=== PATIENT | male | born 1955 | race Caucasian/White ===

== ENCOUNTER 2017-06-07 18:46 | Emergency (ER) | payer MEDICARE, MEDICAID ==
[~2017-06-07] VITALS: Ht 182.9 cm; Wt 105.3 kg
[~2017-06-07 18:46] MED LIST: ATOR20TA PO; CEPH500C5 PO; CYCL-1 PO; FURO-150 PO; GUAI600T45 PO; LEVO125T8 PO
[2017-06-07 19:49] LABS: BASOPHILS # (AUTO) 0.2 X10'3 (0-0.2); BASOPHILS % (AUTO) 1.7 % (0-1); EOSINOPHILS # (AUTO) 0.6 X10'3 (0-0.9); EOSINOPHILS % (AUTO) 6.4 % (0-6); HEMATOCRIT 41.3 % (42.0-52.0); HEMOGLOBIN 14.2 g/dl (14.0-17.9); LYMPHOCYTES # (AUTO) 2.1 X10'3 (1.1-4.8); LYMPHOCYTES % (AUTO) 22.4 % (21-51); MEAN CORPUSCULAR HEMOGLOBIN 30.6 PG (27.0-31.0); MEAN CORPUSCULAR HGB CONC 34.4 % (33.0-36.5); MEAN CORPUSCULAR VOLUME 89.1 FL (78-98); MEAN PLATELET VOLUME 6.5 FL (7.4-10.4); MONOCYTES # (AUTO) 0.5 X10'3 (0-0.9); MONOCYTES % (AUTO) 5.8 % (2-12); NEUTROPHILS # (AUTO) 5.9 X10'3 (1.8-7.7); NEUTROPHILS % (AUTO) 63.7 % (42-75); PLATELET COUNT 313 X10'3 (140-440); RED BLOOD COUNT 4.64 X10'6 (4.70-6.10); RED CELL DISTRIBUTION WIDTH 14.8 % (11.5-14.5); WHITE BLOOD COUNT 9.2 X10'3 (4.5-11.0)
[2017-06-07 19:58] LABS: CLARITY,URINE CLEAR (Clear); COLOR,URINE YELLOW (Yellow); GLUCOSE, URINE NEGATIVE (Neg); KETONES,URINE NEGATIVE (Neg); LEUKOCYTE ESTERASE ,URINE NEGATIVE (Neg); NITRITES, URINE NEGATIVE (Neg); OCCULT BLOOD,URINE NEGATIVE (Neg); PROTEIN,URINE NEGATIVE (Neg); UROBILINOGEN,URINE 0.2 E.U/dL (0.2-1.0)
[2017-06-07 20:00] LABS: UA COLLECTION TYPE CLN CATCH MIDSTREAM
[2017-06-07 20:02] LABS: ALANINE AMINOTRANSFERASE 30 U/L (12-78); ALBUMIN 3.5 G/DL (3.4-5.0); ALBUMIN/GLOBULIN RATIO 0.9 (1.1-1.5); ALKALINE PHOSPHATASE 108 IU/L (46-116); ANION GAP 11 (8-16); ASPARTATE AMINO TRANSFERASE 28 U/L (10-37); BILIRUBIN,TOTAL 0.2 MG/DL (0.1-1.0); BLOOD UREA NITROGEN 13 MG/DL (7-18); BUN/CREATININE RATIO 11.8 (5.4-32.0); CALCIUM 8.8 MG/DL (8.5-10.1); CHLORIDE 105 MMOL/L (99-107); GLUCOSE 95 MG/DL (70-104); POTASSIUM 3.8 MMOL/L (3.5-5.1); SODIUM 141 MMOL/L (135-145); TOTAL PROTEIN 7.5 G/DL (6.4-8.2); eGFR 68 ML/MIN
[2017-06-07] MEDS ORDERED: AZIT-63 PO (20:16)
[2017-06-07] MEDS ORDERED: ketorolac trometh inj. 60 MG/2 ML VIAL IM ONE (20:20)
[2017-06-07 20:22] VITALS: BP 128/77
== END 2017-06-07 20:25 | disposition home or self-care (01) ==
LOC: ER 18:46
DX: J06.9 Acute upper respiratory infection, unspecified (principal); T50.905A Adverse effect of unspecified drugs, medicaments and biological substances, initial encounter; J44.9 Chronic obstructive pulmonary disease, unspecified; I10 Essential (primary) hypertension; E78.00 Pure hypercholesterolemia, unspecified; F11.10 Opioid abuse, uncomplicated; F17.210 Nicotine dependence, cigarettes, uncomplicated; Z86.19 Personal history of other infectious and parasitic diseases; Y92.89 Other specified places as the place of occurrence of the external cause
CPT/HCPCS: 36415; 71045; 80053; 81003; 85025; 96372; 99285; J1885

== ENCOUNTER 2017-10-17 16:13 | Emergency (ER) | payer MEDICARE, MEDICAID ==
[~2017-10-17] VITALS: Ht 182.9 cm; Wt 100.0 kg
[2017-10-17 16:18] VITALS: BP 134/79
[2017-10-17] MEDS ORDERED: BUPIVAcaine/PF 2.5 mg/ml (0.25%) 30ml vial IJ ONE ×2 (16:50→16:55)
[2017-10-17] MEDS ORDERED: HYDROcodone/acetaminophen 10/325mg tab PO ONE (16:55)
[2017-10-17] MEDS ORDERED: bupivacaine 0.25%/epinephrine 1:200,000 inj (contains preserv. MDV) SQ ONE (17:05)
[2017-10-17] MEDS ORDERED: SULF1TAB49 PO (18:34)
[2017-10-17] MEDS ORDERED: CEPH500C5 PO (18:34)
== END 2017-10-17 18:56 | disposition home or self-care (01) ==
LOC: ER 16:13
DX: L02.416 Cutaneous abscess of left lower limb (principal); L03.116 Cellulitis of left lower limb; E78.00 Pure hypercholesterolemia, unspecified; I10 Essential (primary) hypertension; J44.9 Chronic obstructive pulmonary disease, unspecified; F11.90 Opioid use, unspecified, uncomplicated; Z86.19 Personal history of other infectious and parasitic diseases; Z79.2 Long term (current) use of antibiotics; Z79.899 Other long term (current) drug therapy
CPT/HCPCS: 10060; 99283

== ENCOUNTER 2017-10-20 11:10 | Emergency (ER) | payer MEDICARE, MEDICAID ==
[~2017-10-20] VITALS: Ht 182.9 cm; Wt 100.0 kg
[~2017-10-20 11:10] MED LIST changes: +SULF1TAB49 PO
[2017-10-20 12:39] VITALS: BP 112/79
== END 2017-10-20 12:45 | disposition home or self-care (01) ==
LOC: ER 11:10
DX: S81.802D Unspecified open wound, left lower leg, subsequent encounter (principal); E78.00 Pure hypercholesterolemia, unspecified; I10 Essential (primary) hypertension; J44.9 Chronic obstructive pulmonary disease, unspecified; F11.90 Opioid use, unspecified, uncomplicated; Z56.0 Unemployment, unspecified; Z79.2 Long term (current) use of antibiotics; Z79.899 Other long term (current) drug therapy; X58.XXXD Exposure to other specified factors, subsequent encounter
CPT/HCPCS: 99281; A6255; A6266; A6449

== ENCOUNTER 2017-12-03 10:25 | Emergency (ER) | payer MEDICARE, MEDICAID ==
[~2017-12-03] VITALS: Ht 182.9 cm; Wt 100.0 kg
[~2017-12-03 10:25] MED LIST changes: -SULF1TAB49 PO
[2017-12-03 10:38] VITALS: BP 145/92
== END 2017-12-03 11:20 | disposition home or self-care (01) ==
LOC: ER 10:25
DX: G62.9 Polyneuropathy, unspecified (principal); E78.00 Pure hypercholesterolemia, unspecified; I10 Essential (primary) hypertension; J44.9 Chronic obstructive pulmonary disease, unspecified; F15.90 Other stimulant use, unspecified, uncomplicated; F11.90 Opioid use, unspecified, uncomplicated; Z56.0 Unemployment, unspecified; Z79.899 Other long term (current) drug therapy
CPT/HCPCS: 99281

== ENCOUNTER 2018-03-28 20:07 | Emergency (ER) | payer MEDICARE, MEDICAID ==
[~2018-03-28] VITALS: Ht 182.9 cm; Wt 102.3 kg
[2018-03-28] MEDS ORDERED: normal saline 1000ml 1,000 ML IV ONE ×2 (21:10→21:20)
[2018-03-28] MEDS ORDERED: levetiracetam inj 1,000 MG in normal saline 100ml IV soln 90 ML IV ONE (21:15)
[2018-03-28] MEDS ORDERED: HYDROcodone/acetaminophen 5mg/325mg tablet PO ONE (21:20)
[2018-03-28] MEDS ORDERED: ondansetron/PF 4mg/2ml inj IV ONE (21:20)
[2018-03-28] MEDS ORDERED: levoFLOXACIN 750MG TABLET PO ONE (22:15)
[2018-03-28] MEDS ORDERED: AMOX-580 PO (22:20)
[2018-03-28] MEDS ORDERED: GABA-530 PO (22:20)
[2018-03-28] MEDS ORDERED: CLON0.2T PO (22:20)
[2018-03-28] MEDS ORDERED: AMIT75TA2 (22:20)
[2018-03-28] MEDS ORDERED: UMEC1DIS (22:20)
[2018-03-28] MEDS ORDERED: ALBU18HF2 INH (22:20)
[2018-03-28 22:32] LABS: BASOPHILS % (AUTO) 0.4 % (0-1); EOSINOPHILS # (AUTO) 0.7 X10'3 (0-0.9); EOSINOPHILS % (AUTO) 8.3 % (0-6); HEMATOCRIT 41.9 % (42.0-52.0); HEMOGLOBIN 14.1 g/dl (14.0-17.9); LYMPHOCYTES # (AUTO) 1.7 X10'3 (1.1-4.8); LYMPHOCYTES % (AUTO) 18.7 % (21-51); MEAN CORPUSCULAR HEMOGLOBIN 30.7 PG (27.0-31.0); MEAN CORPUSCULAR HGB CONC 33.7 % (33.0-36.5); MEAN CORPUSCULAR VOLUME 91.1 FL (78-98); MEAN PLATELET VOLUME 7.2 FL (7.4-10.4); MONOCYTES # (AUTO) 0.7 X10'3 (0-0.9); NEUTROPHILS # (AUTO) 5.7 X10'3 (1.8-7.7); NEUTROPHILS % (AUTO) 64.6 % (42-75); PLATELET COUNT 236 X10'3 (140-440); RED CELL DISTRIBUTION WIDTH 13.9 % (11.5-14.5); WHITE BLOOD COUNT 8.9 X10'3 (4.5-11.0)
[2018-03-28] MEDS ORDERED: mag hydrox/Alum hydrox/simeth 30ml oral suspension PO ONE (22:45)
[2018-03-28] MEDS ORDERED: famotidine/PF 10 mg/ml inj IV ONE (22:45)
[2018-03-28] MEDS ORDERED: pantoprazole 40 MG vial IV ONE (22:45)
[2018-03-28 22:48] LABS: ALANINE AMINOTRANSFERASE 60 U/L (12-78); ALBUMIN 3.3 G/DL (3.4-5.0); ALBUMIN/GLOBULIN RATIO 0.8 (1.1-1.5); ALKALINE PHOSPHATASE 99 IU/L (46-116); ANION GAP 9 (8-16); ASPARTATE AMINO TRANSFERASE 36 U/L (10-37); BILIRUBIN,TOTAL 0.4 MG/DL (0.1-1.0); BLOOD UREA NITROGEN 11 MG/DL (7-18); BUN/CREATININE RATIO 10.2 (5.4-32.0); CALCIUM 8.9 MG/DL (8.5-10.1); CHLORIDE 101 MMOL/L (99-107); CREATININE 1.08 MG/DL (0.60-1.10); GLUCOSE 108 MG/DL (70-104); POTASSIUM 4.1 MMOL/L (3.5-5.1); SODIUM 138 MMOL/L (135-145); TOTAL CARBON DIOXIDE 28.2 MMOL/L (24-32); TOTAL PROTEIN 7.3 G/DL (6.4-8.2); eGFR 69 ML/MIN
[2018-03-28 22:57] LABS: MAGNESIUM 2.1 MG/DL (1.5-2.4); TROPONIN I < 0.04 NG/ML (0.0-0.05)
[2018-03-28] MEDS ORDERED: methylPREDNISolone sod succ 125mg/2ml vial IV ONE (23:15)
[2018-03-28] MEDS ORDERED: ipratropium/albuterol 3ml nebule NEB ONE (23:15)
[2018-03-28] MEDS ORDERED: LEVO500T2 PO (23:37)
[2018-03-28] MEDS ORDERED: PRED20TA PO (23:37)
[2018-03-28] MEDS ORDERED: ALB0.5UD IH (23:37)
[2018-03-28] MEDS ORDERED: NEBU-208 (23:37)
[2018-03-29 00:09] LABS: CLARITY,URINE CLEAR (Clear); COLOR,URINE YELLOW (Yellow); GLUCOSE, URINE NEGATIVE (Neg); KETONES,URINE NEGATIVE (Neg); LEUKOCYTE ESTERASE ,URINE NEGATIVE (Neg); NITRITES, URINE NEGATIVE (Neg); OCCULT BLOOD,URINE NEGATIVE (Neg); PROTEIN,URINE NEGATIVE (Neg); UROBILINOGEN,URINE 0.2 E.U/dL (0.2-1.0)
[2018-03-29 00:21] LABS: UA COLLECTION TYPE CLN CATCH MIDSTREAM
[2018-03-29 00:25] VITALS: BP 134/94
== END 2018-03-29 00:27 | disposition home or self-care (01) ==
LOC: ER 20:07
DX: J44.1 Chronic obstructive pulmonary disease with (acute) exacerbation (principal); E78.00 Pure hypercholesterolemia, unspecified; I10 Essential (primary) hypertension; F15.90 Other stimulant use, unspecified, uncomplicated; F11.90 Opioid use, unspecified, uncomplicated; Z56.0 Unemployment, unspecified; Z79.899 Other long term (current) drug therapy
CPT/HCPCS: 36415; 71046; 80053; 81003; 83605; 83735; 83880; 84484; 85025; 87040; 94640; 94760; 96374; 96375; 99285; C9113; J2405; J2930; J3490; J1953; J7030

== ENCOUNTER 2019-03-27 17:02 | Emergency (ER) | payer MEDICARE, MEDICAID ==
[~2019-03-27] VITALS: Ht 182.9 cm; Wt 109.1 kg
[~2019-03-27 17:02] MED LIST changes: +ALBU18HF2 INH; +AMIT75TA2; -ATOR20TA PO; -CEPH500C5 PO; +CLON0.2T PO; -CYCL-1 PO; +FAMO40TA73 PO; -FURO-150 PO; +GABA-530 PO; -GUAI600T45 PO; +NEBU-208; +UMEC1DIS
[2019-03-27 17:05] VITALS: BP 125/75
[2019-03-27] MEDS ORDERED: ipratropium/albuterol 3ml nebule NEB ONE (18:05)
[2019-03-27] MEDS ORDERED: PRED20TA PO (18:11)
[2019-03-27] MEDS ORDERED: AZIT250T83 PO (18:11)
--- NOTE | 2019-03-27 18:24 | NUR ---
elsi, page RT [id number]
== END 2019-03-27 19:12 | disposition home or self-care (01) ==
LOC: ER 17:03
DX: F11.90 Opioid use, unspecified, uncomplicated (principal); J20.9 Acute bronchitis, unspecified; E78.00 Pure hypercholesterolemia, unspecified; I10 Essential (primary) hypertension; J44.9 Chronic obstructive pulmonary disease, unspecified; F15.90 Other stimulant use, unspecified, uncomplicated; Z56.0 Unemployment, unspecified; Z87.01 Personal history of pneumonia (recurrent); Z79.899 Other long term (current) drug therapy
CPT/HCPCS: 94640; 94760; 99283

== ENCOUNTER 2019-06-27 12:29 | Inpatient (IN) | payer MEDICARE, MEDICAID ==
[~2019-06-27] VITALS: Ht 185.4 cm; Wt 105.0 kg
--- NOTE | 2019-06-27 12:35 | NUR ---
places on bipap 02 50%
[2019-06-27] MEDS ORDERED: LORazepam 2 mg/ml vial IM ONE (12:40)
[2019-06-27] MEDS ORDERED: albuterol 2.5 MG/3 ML nebule ONE (12:42)
[2019-06-27] MEDS ORDERED: dexamethasone sod phosphate 10mg/ml inj IV STA (12:44)
--- NOTE | 2019-06-27 12:45 | NUR ---
1mg Ativan given by RAFAT Varma/order was mistakenly put in as 2mg, correct dose from verbal order given
[2019-06-27 13:00] LABS: ABG BASE EXCESS -2.8 mmol/L (-2.0-3.0); ABG HCO3 24.6 mmol/L (22.0-26.0); ABG OXYGEN SATURATION 99.1 % (95-98); ABG PCO2 (T) 52.5 mmHg (35.0-45.0); ABG PH (T) 7.288 (7.350-7.450); ABG PO2 (T) 209.4 mmHg (83-108); ALLEN'S TEST POSITIVE; FCOHb 0.6 % (0.5-1.5); FMetHb 0.2 % (0.3-1.12); FO2Hb 98.3 % (94-100); RESPIRATORY RATE 24 b/min
[2019-06-27 13:15] LABS: BASOPHILS # (AUTO) 0.1 X10'3 (0-0.2); BASOPHILS % (AUTO) 0.9 % (0-1); EOSINOPHILS # (AUTO) 1.4 X10'3 (0-0.9); EOSINOPHILS % (AUTO) 13.2 % (0-6); HEMATOCRIT 44.7 % (42.0-52.0); HEMOGLOBIN 14.8 g/dl (14.0-17.9); LYMPHOCYTES # (AUTO) 1.3 X10'3 (1.1-4.8); MEAN CORPUSCULAR HEMOGLOBIN 27.5 PG (27.0-31.0); MEAN CORPUSCULAR VOLUME 83.3 FL (78-98); MONOCYTES # (AUTO) 0.5 X10'3 (0-0.9); MONOCYTES % (AUTO) 4.9 % (2-12); PLATELET COUNT 282 X10'3 (140-440); RED BLOOD COUNT 5.37 X10'6 (4.70-6.10); RED CELL DISTRIBUTION WIDTH 15.4 % (11.5-14.5); WHITE BLOOD COUNT 10.3 X10'3 (4.5-11.0)
[2019-06-27 13:42] LABS: ALANINE AMINOTRANSFERASE 32 U/L (12-78); ALBUMIN 3.9 G/DL (3.4-5.0); ALBUMIN/GLOBULIN RATIO 0.9 (1.1-1.5); ALKALINE PHOSPHATASE 86 IU/L (46-116); ANION GAP 5 (8-16); ASPARTATE AMINO TRANSFERASE 35 U/L (10-37); BILIRUBIN,TOTAL 0.5 MG/DL (0.1-1.0); BLOOD UREA NITROGEN 12 MG/DL (7-18); BUN/CREATININE RATIO 9.3 (5.4-32.0); CALCIUM 9.3 MG/DL (8.5-10.1); CHLORIDE 104 MMOL/L (99-107); CREATININE 1.29 MG/DL (0.60-1.10); GLUCOSE 99 MG/DL (70-104); POTASSIUM 4.4 MMOL/L (3.5-5.1); SODIUM 140 MMOL/L (135-145); TOTAL CARBON DIOXIDE 31.1 MMOL/L (24-32); TOTAL PROTEIN 8.1 G/DL (6.4-8.2); eGFR 56 ML/MIN
[2019-06-27] MEDS ORDERED: azithromycin/NS 500mg/250ml 250 ML IV ONE (13:45)
[2019-06-27] MEDS ORDERED: CefTRIAXone 2gm/D5W 50ml 50 ML IV ONE (13:45)
[2019-06-27 14:26] LABS: ABG BASE EXCESS -0.2 mmol/L (-2.0-3.0); ABG HCO3 26.5 mmol/L (22.0-26.0); ABG OXYGEN SATURATION 92.6 % (95-98); ABG PH (T) 7.334 (7.350-7.450); ALLEN'S TEST POSITIVE; FCOHb 0.9 % (0.5-1.5); FMetHb 0.3 % (0.3-1.12); FO2Hb 91.5 % (94-100); RESPIRATORY RATE 24 b/min; TIDAL VOLUME 499 mL; TOTAL HEMOGLOBIN 15.1 G/dl (14.0-17.9)
[2019-06-27] MEDS ORDERED: methylPREDNISolone sod succ 125mg/2ml vial IV ONE (14:30)
[2019-06-27] MEDS ORDERED: diphenhydrAMINE 25mg capsule PO PRN (14:30)
[2019-06-27] MEDS ORDERED: HYDROcodone/acetaminophen 5mg/325mg tablet PO PRN (14:30)
[2019-06-27] MEDS ORDERED: acetaminophen 325mg tablet PO PRN ×2 (14:30)
[2019-06-27] MEDS ORDERED: mag hydrox/Alum hydrox/simeth 30ml oral suspension PO PRN (14:30)
[2019-06-27] MEDS ORDERED: potassium Cl 20 mEq SR tablet PO PRN ×2 (14:30)
[2019-06-27] MEDS ORDERED: ondansetron/PF 4mg/2ml inj IV PRN (14:30)
[2019-06-27] MEDS ORDERED: morphine 2 MG/ML inj. syringe IV PRN ×2 (14:30)
[2019-06-27] MEDS ORDERED: potassium CL 10mEq/100ml bag 100 ML IV PRN ×2 (14:30)
[2019-06-27] MEDS ORDERED: magnesium 4gm in 100ml NS 100 ML IV PRN (14:30)
[2019-06-27] MEDS ORDERED: magnesium 2GM in 50ml NS 50 ML IV PRN (14:30)
[2019-06-27] MEDS ORDERED: bisacodyl 10mg suppository rectal RC PRN (14:30)
[2019-06-27] MEDS ORDERED: magnesium Cl slow-release 64mg tablet PO PRN (14:30)
[2019-06-27] MEDS ORDERED: acetaminophen 650mg rectal suppository RC PRN (14:30)
[2019-06-27] MEDS ORDERED: magnesium hydroxide 30ml (MOM) UD suspension PO PRN (14:30)
--- NOTE | 2019-06-27 14:30 | NUR ---
REPEAT ABG DRAWN, NOT MUCH IMPROVMENT WITH BIPAP. REPORTED ABG RESULTS TO DR Maurer, STATED TO SEE HOW PT WOULD DO OFF BIPAP. PT PLACED ON 3LPM NC, SPO2 95, HR 104, RR 18. PT COMFORTABLE.
--- NOTE | 2019-06-27 14:35 | NUR ---
pt taken off bipap by RT placed on 3L nc
[2019-06-27] MEDS: normal saline 1000ml 1,000 ML IV SCH (14:38)
[2019-06-27] MEDS ORDERED: iohexol 350MG/ML 100ml bottle IV ONE (14:48)
--- NOTE | 2019-06-27 14:54 | NUR ---
called to give report, was told RAFAT Parks is in an iso room and will call me back
--- NOTE | 2019-06-27 15:15 | NUR ---
Received pt from ER via rose. Oriented pt to room and call light. Tele monitor placed. VS assessed. 2RN skin check noted. Performed physical assessment. Pt significant other currently at bedside.
[2019-06-27 15:30] VITALS: BP 127/87
[2019-06-27] MEDS: ipratropium/albuterol 3ml nebule NEB SCH ×3 (16:26→23:56)
[2019-06-27 17:19] LABS: CLARITY,URINE CLEAR (Clear); COLOR,URINE STRAW (Yellow); GLUCOSE, URINE NEGATIVE (Neg); KETONES,URINE NEGATIVE (Neg); LEUKOCYTE ESTERASE ,URINE NEGATIVE (Neg); NITRITES, URINE NEGATIVE (Neg); OCCULT BLOOD,URINE TRACE-INTACT (Neg); PH,URINE 7.5 (4.8-8.0); PROTEIN,URINE NEGATIVE (Neg); UROBILINOGEN,URINE 0.2 E.U/dL (0.2-1.0)
[2019-06-27 17:22] LABS: UA COLLECTION TYPE NON-SPECIFIED
[2019-06-27 17:31] LABS: BACTERIA,URINE NONE SEEN /HPF (Neg); MUCUS STRANDS NONE SEEN /LPF (Neg); RBC,URINE 0-2 /HPF (0-2); SQUAMOUS EPITHELIAL CELL,UR NONE SEEN /LPF (FEW); WBC,URINE NONE SEEN /HPF (0-4)
[2019-06-27 18:00] VITALS: BP 121/85
[2019-06-27] MEDS: levoFLOXACIN-Levaquin 750MG/D5 150 ML IV SCH (18:06)
--- NOTE | 2019-06-27 18:57 | NUR ---
Patient in room PCU 3026. I have received report from Kasey DOUGLASS and had the opportunity to ask questions and assume patient care.
--- NOTE | 2019-06-27 19:09 | NUR ---
Problems reprioritized. Patient report given, questions answered & plan of care reviewed with RAFAT Chambers.
[2019-06-27] MEDS: methylPREDNISolone sod succ 125mg/2ml vial IV SCH (19:39)
[2019-06-27] MEDS: heparin, porcine 5000 units/ml vial SQ SCH (19:40)
[2019-06-27] MEDS: HYDROcodone/acetaminophen 10/325mg tab PO PRN ×2 (19:41→23:54)
[2019-06-27] MEDS: K and/or MAG REPLACEMENT MC SCH (20:00)
[2019-06-27 22:00] VITALS: BP 124/82
[2019-06-27] MEDS: temazepam 15mg capsule PO PRN (23:53)
[2019-06-28 00:56] LABS: BASOPHILS % (AUTO) 0.1 % (0-1); EOSINOPHILS % (AUTO) 0.1 % (0-6); HEMATOCRIT 44.3 % (42.0-52.0); HEMOGLOBIN 14.9 g/dl (14.0-17.9); LYMPHOCYTES # (AUTO) 0.5 X10'3 (1.1-4.8); MEAN CORPUSCULAR HEMOGLOBIN 27.9 PG (27.0-31.0); MEAN CORPUSCULAR HGB CONC 33.6 g/dL (33.0-36.5); MEAN PLATELET VOLUME 7.2 FL (7.4-10.4); MONOCYTES % (AUTO) 0.6 % (2-12); NEUTROPHILS # (AUTO) 6.2 X10'3 (1.8-7.7); NEUTROPHILS % (AUTO) 92.2 % (42-75); PLATELET COUNT 280 X10'3 (140-440); RED BLOOD COUNT 5.33 X10'6 (4.70-6.10); RED CELL DISTRIBUTION WIDTH 15.5 % (11.5-14.5); WHITE BLOOD COUNT 6.7 X10'3 (4.5-11.0)
[2019-06-28 01:00] LABS: ALANINE AMINOTRANSFERASE 33 U/L (12-78); ALBUMIN 3.7 G/DL (3.4-5.0); ALBUMIN/GLOBULIN RATIO 0.8 (1.1-1.5); ALKALINE PHOSPHATASE 80 IU/L (46-116); ANION GAP 6 (8-16); ASPARTATE AMINO TRANSFERASE 37 U/L (10-37); BILIRUBIN,TOTAL 0.4 MG/DL (0.1-1.0); BLOOD UREA NITROGEN 16 MG/DL (7-18); BUN/CREATININE RATIO 11.7 (5.4-32.0); CALCIUM 9.4 MG/DL (8.5-10.1); CHLORIDE 103 MMOL/L (99-107); CREATININE 1.37 MG/DL (0.60-1.10); GLUCOSE 97 MG/DL (70-104); POTASSIUM 3.9 MMOL/L (3.5-5.1); SODIUM 140 MMOL/L (135-145); TOTAL CARBON DIOXIDE 30.6 MMOL/L (24-32); TOTAL PROTEIN 8.4 G/DL (6.4-8.2); eGFR 52 ML/MIN
[2019-06-28 01:03] LABS: CHOL/HDL RATIO 2.4 (0.00-4.99); CHOLESTEROL 160 MG/DL (0-200); HDL CHOLESTEROL 66 MG/DL (35-60); LDL CHOLESTEROL 81 MG/DL (50-100); MAGNESIUM 2.1 MG/DL (1.5-2.4); PHOSPHORUS 1.4 MG/DL (2.3-4.5); TRIGLYCERIDES 44 MG/DL (20-135)
[2019-06-28 02:00] VITALS: BP 134/81
[2019-06-28] MEDS: methylPREDNISolone sod succ 125mg/2ml vial IV SCH ×4 (02:16→20:50)
[2019-06-28] MEDS: temazepam 15mg capsule PO PRN ×2 (02:16→23:55)
[2019-06-28] MEDS: ipratropium/albuterol 3ml nebule NEB SCH ×6 (04:11→22:45)
[2019-06-28] MEDS: normal saline 1000ml 1,000 ML IV SCH ×2 (05:15→20:34)
--- NOTE | 2019-06-28 06:09 | NUR ---
Patient in room PCU 3026. I have received report from RAFAT Suh and had the opportunity to ask questions and assume patient care.
--- NOTE | 2019-06-28 06:46 | NUR ---
Problems reprioritized. Patient report given, questions answered & plan of care reviewed with Kasey DOUGLASS.
[2019-06-28 07:00] VITALS: BP 140/77
[2019-06-28] MEDS: K and/or MAG REPLACEMENT MC SCH ×2 (07:13→20:00)
--- NOTE | 2019-06-28 07:37 | NUR ---
Casandrad chyna PAGER ID: [phone] MESSAGE: [id number]: Vish Jaycee: Pt phosphorus level is 1.4. May I have an order to replace pts phos? Kindly advise. -Kasey [phone]
[2019-06-28] MEDS: levoFLOXACIN-Levaquin 750MG/D5 150 ML IV SCH (08:07)
[2019-06-28] MEDS: heparin, porcine 5000 units/ml vial SQ SCH ×2 (08:07→20:58)
[2019-06-28] MEDS ORDERED: GABA300C PO (09:40)
[2019-06-28] MEDS ORDERED: CYCL-394 PO (09:45)
[2019-06-28] MEDS ORDERED: LUBI8CAP PO (09:45)
[2019-06-28] MEDS ORDERED: FENO145T38 PO (09:45)
[2019-06-28] MEDS ORDERED: ATOR40TA PO (09:45)
[2019-06-28] MEDS ORDERED: LEVO175T37 PO (09:46)
[2019-06-28] MEDS ORDERED: potassium phosphate inj 30 MMOL in normal saline 500ml IV soln 500 ML IV ONE (10:15)
[2019-06-28 11:00] VITALS: BP 127/78
[2019-06-28] MEDS: levoTHYROXINE 175mcg tablet PO SCH (11:41)
[2019-06-28] MEDS: fenofibrate 145mg tablet PO SCH (11:41)
[2019-06-28] MEDS: LUBIPROSTONE 8 MCG PO SCH ×2 (11:49→20:54)
[2019-06-28] MEDS: gabapentin 300mg capsule PO SCH ×2 (13:00→20:55)
[2019-06-28 15:00] VITALS: BP 108/65
[2019-06-28 15:24] LABS: URINE AMPHETAMINE SCREEN NEGATIVE (Neg); URINE BARBITUATE SCREEN NEGATIVE (Neg); URINE BENZODIAZEPINES SCREEN POSITIVE (Neg); URINE CANNABINOID SCREEN NEGATIVE (Neg); URINE COCAINE SCREEN NEGATIVE (Neg); URINE METHADONE SCREEN POSITIVE (Neg); URINE OPIATE SCREEN POSITIVE (Neg); URINE PHENCYCLIDINE SCREEN POSITIVE (Neg)
[2019-06-28] MEDS: HYDROcodone/acetaminophen 10/325mg tab PO PRN ×2 (16:46→20:56)
[2019-06-28 18:00] VITALS: BP 130/74
--- NOTE | 2019-06-28 18:18 | NUR ---
Problems reprioritized. Patient report given, questions answered & plan of care reviewed with RAFAT Chambers.
--- NOTE | 2019-06-28 18:23 | NUR ---
Patient in room PCU 3026. I have received report from Kasey DOUGLASS and had the opportunity to ask questions and assume patient care.
[2019-06-28] MEDS: cloNIDine 0.1 mg tablet PO SCH (20:50)
[2019-06-28] MEDS: cyclobenzaprine 10mg tablet PO SCH (20:51)
[2019-06-28] MEDS ORDERED: amitriptyline 25mg tablet PO SCH (21:00)
[2019-06-28 22:00] VITALS: BP 127/73
[2019-06-28] MEDS ORDERED: normal saline 1000ml 1,000 ML IV ONE (22:10)
[2019-06-29] MEDS: normal saline 1000ml 1,000 ML IV SCH ×2 (00:38→08:08)
[2019-06-29] MEDS: HYDROcodone/acetaminophen 10/325mg tab PO PRN (00:39)
[2019-06-29 02:00] VITALS: BP 117/66
[2019-06-29] MEDS: methylPREDNISolone sod succ 125mg/2ml vial IV SCH ×2 (02:46→08:07)
[2019-06-29] MEDS: ipratropium/albuterol 3ml nebule NEB SCH ×3 (02:46→11:00)
[2019-06-29 05:28] LABS: BASOPHILS % (AUTO) 0 % (0-1); EOSINOPHILS % (AUTO) 0 % (0-6); HEMOGLOBIN 13.8 g/dl (14.0-17.9); LYMPHOCYTES # (AUTO) 0.6 X10'3 (1.1-4.8); LYMPHOCYTES % (AUTO) 3.7 % (21-51); MEAN CORPUSCULAR HEMOGLOBIN 27.3 PG (27.0-31.0); MEAN CORPUSCULAR HGB CONC 32.8 g/dL (33.0-36.5); MEAN CORPUSCULAR VOLUME 83.4 FL (78-98); MEAN PLATELET VOLUME 7.1 FL (7.4-10.4); MONOCYTES # (AUTO) 0.5 X10'3 (0-0.9); NEUTROPHILS # (AUTO) 15.8 X10'3 (1.8-7.7); NEUTROPHILS % (AUTO) 93.3 % (42-75); PLATELET COUNT 261 X10'3 (140-440); RED BLOOD COUNT 5.03 X10'6 (4.70-6.10)
[2019-06-29 06:00] VITALS: BP 122/75
[2019-06-29 06:00] LABS: ALANINE AMINOTRANSFERASE 27 U/L (12-78); ALBUMIN 3.2 G/DL (3.4-5.0); ALBUMIN/GLOBULIN RATIO 0.8 (1.1-1.5); ALKALINE PHOSPHATASE 67 IU/L (46-116); ANION GAP 7 (8-16); ASPARTATE AMINO TRANSFERASE 28 U/L (10-37); BILIRUBIN,TOTAL 0.3 MG/DL (0.1-1.0); BLOOD UREA NITROGEN 20 MG/DL (7-18); BUN/CREATININE RATIO 17.5 (5.4-32.0); CALCIUM 8.7 MG/DL (8.5-10.1); CHLORIDE 109 MMOL/L (99-107); CREATININE 1.14 MG/DL (0.60-1.10); GLUCOSE 134 MG/DL (70-104); MAGNESIUM 2.3 MG/DL (1.5-2.4); PHOSPHORUS 1.8 MG/DL (2.3-4.5); POTASSIUM 4.3 MMOL/L (3.5-5.1); SODIUM 143 MMOL/L (135-145); TOTAL CARBON DIOXIDE 26.8 MMOL/L (24-32); eGFR 65 ML/MIN
--- NOTE | 2019-06-29 06:56 | NUR ---
Problems reprioritized. Patient report given, questions answered & plan of care reviewed with Allison DOUGLASS.
[2019-06-29] MEDS ORDERED: atorvastatin 20mg tablet PO SCH (08:00)
[2019-06-29] MEDS: K and/or MAG REPLACEMENT MC SCH (08:00)
[2019-06-29] MEDS: gabapentin 300mg capsule PO SCH (08:07)
[2019-06-29] MEDS: cyclobenzaprine 10mg tablet PO SCH (08:07)
[2019-06-29] MEDS: cloNIDine 0.1 mg tablet PO SCH (08:07)
[2019-06-29] MEDS: fenofibrate 145mg tablet PO SCH (08:07)
[2019-06-29] MEDS: levoTHYROXINE 175mcg tablet PO SCH (08:07)
[2019-06-29] MEDS: LUBIPROSTONE 8 MCG PO SCH (08:08)
[2019-06-29] MEDS: heparin, porcine 5000 units/ml vial SQ SCH (08:08)
[2019-06-29] MEDS ORDERED: BUDE10.22 INH (10:54)
[2019-06-29] MEDS ORDERED: PRED10TA23 PO (10:54)
[2019-06-29] MEDS ORDERED: LEVO750T46 PO (10:54)
[2019-06-29 11:00] VITALS: BP 153/81
[2019-06-29] MEDS ORDERED: levoFLOXACIN 750MG TABLET PO SCH (11:00)
--- NOTE | 2019-06-29 12:05 | NUR ---
Page sent to Dr. Ahn requesting FWW. PAGER ID: [phone] MESSAGE: [phone]: [id number] Vish Hastings- Per last PT note, patient using front wheel walker with ambulation. Pt requesting on upon discharge. Thanks, Allison [phone]
--- NOTE | 2019-06-29 12:07 | NUR ---
Per myra Suárez for patient to have FWW on discharge. Page sent to [facility].
--- NOTE | 2019-06-29 13:02 | NUR ---
Patient stable for discharge per MD. Patient alert and oriented. All discharge instructions given to patient and . All questions and concerns addressed. Medications faxed to [facility] on [address]. PIV d/c'd, catheter intact. Tele monitor removed and returned to [employer]. All personal belongings sent with patient. Guillermina at bedside to deliver FWW. Patient transported off unit via wheel chair to private vehicle.
--- NOTE | 2019-07-01 12:27 | NUR ---
Case management DC follow up: LM/VM questions, concerns, post DC status
== END 2019-06-29 13:02 | disposition home health service (06) | DRG 189 ==
LOC: ER 12:30 → ED HOLD 14:29 → PCU 3S 15:36
PROVIDERS: ADMIT Family Medicine; ATTEND Family Medicine
PROC: 5A09357 Assistance with Respiratory Ventilation, Less than 24 Consecutive Hours, Continuous Positive Airway Pressure (ICD-10-PCS; principal; 2019-06-27)
PROC: B32T1ZZ Computerized Tomography (CT Scan) of Left Pulmonary Artery using Low Osmolar Contrast (ICD-10-PCS; 2019-06-27)
PROC: B3201ZZ Computerized Tomography (CT Scan) of Thoracic Aorta using Low Osmolar Contrast (ICD-10-PCS; 2019-06-27)
PROC: B32S1ZZ Computerized Tomography (CT Scan) of Right Pulmonary Artery using Low Osmolar Contrast (ICD-10-PCS; 2019-06-27)
DX: J96.20 Acute and chronic respiratory failure, unspecified whether with hypoxia or hypercapnia (principal); E87.2 Acidosis; J44.0 Chronic obstructive pulmonary disease with (acute) lower respiratory infection; J44.1 Chronic obstructive pulmonary disease with (acute) exacerbation; E03.9 Hypothyroidism, unspecified; E78.00 Pure hypercholesterolemia, unspecified; F10.10 Alcohol abuse, uncomplicated; F17.210 Nicotine dependence, cigarettes, uncomplicated; F15.10 Other stimulant abuse, uncomplicated; F41.0 Panic disorder [episodic paroxysmal anxiety]; F41.1 Generalized anxiety disorder; I10 Essential (primary) hypertension; J20.9 Acute bronchitis, unspecified; K21.9 Gastro-esophageal reflux disease without esophagitis; F11.90 Opioid use, unspecified, uncomplicated; Z99.81 Dependence on supplemental oxygen; Z71.6 Tobacco abuse counseling; Z71.51 Drug abuse counseling and surveillance of drug abuser; Z71.41 Alcohol abuse counseling and surveillance of alcoholic
CPT/HCPCS: 36415; 36600; 71045; 71275; 80053; 80061; 80305; 81001; 82803; 83036; 83605; 83735; 84100; 84145; 84439; 84443; 84484; 85018; 85025; 87040; 87070; 87077; 87185; 93005; 93306; 94640; 94660; 94760; 96372; 96374; 97116; 97161; 97530; 99291; G0378; J0456; J0696; J1100; J1644; J1956; J2060; J2930; J7030; J7040; Q9967